=== PATIENT | female | born 1995 | race Caucasian/White ===

== ENCOUNTER → 2025-02-01 07:38 | Outpatient (REF) | payer OTHER, SELFPAY | LOC: PNTC 07:38 | PROVIDERS: ATTENDING PHYSICIAN Obstetrics & Gynecology | DX: O14.90 Unspecified pre-eclampsia, unspecified trimester (principal) | CPT/HCPCS: 59025; 76815 ==

== ENCOUNTER → 2025-02-08 07:53 | Outpatient (REF) | payer OTHER, SELFPAY | LOC: PNTC 07:53 | PROVIDERS: ATTENDING PHYSICIAN Obstetrics & Gynecology | DX: O14.90 Unspecified pre-eclampsia, unspecified trimester (principal) | CPT/HCPCS: 59025; 76815 ==

== ENCOUNTER → 2025-02-15 08:27 | Outpatient (REF) | payer OTHER, SELFPAY | LOC: PNTC 08:27 | PROVIDERS: ATTENDING PHYSICIAN Obstetrics & Gynecology | DX: O14.90 Unspecified pre-eclampsia, unspecified trimester (principal) | CPT/HCPCS: 59025; 76815 ==

== ENCOUNTER 2025-03-04 14:29 | Observation (INO) | payer OTHER, SELFPAY ==
[2025-03-04 15:02] VITALS: BP 120/82; BMI 28.2
[2025-03-04 15:11] LABS: Hematocrit 39.3 % (37.0-47.0); Hemoglobin 13.8 g/dL (12.0-16.0); Mean Corp Hgb Conc. 35.1 g/dL (33.0-37.0); Mean Corpuscular Volume 86.4 fL (81.0-99.0); Nucleated Red Blood Cells % 0 %; Platelet Count 175 10^3/uL (130-400); Red Cell Dist. Width 12.6 % (11.5-14.5)
[2025-03-04 15:32] LABS: Blood Urea Nitrogen 6 mg/dl (7-17); Calcium 9.6 mg/dl (8.4-10.2); Carbon Dioxide 21 mmol/L (22-30); Chloride 109 mmol/L (98-107); Estimated Creatinine Clearance > 125 ml/min; Glucose 87 mg/dl (70-99); Sodium 135 mmol/L (135-145); eGFR > 60.00
[2025-03-04 16:10] LABS: ALT (SGPT) 16 U/L (0-35); AST (SGOT) 23 U/L (14-36); Albumin 3.5 g/dl (3.5-5.0); Alkaline Phosphatase 108 U/L (38-126); Blood Urea Nitrogen 5 mg/dl (7-17); Calcium 9.0 mg/dl (8.4-10.2); Carbon Dioxide 21 mmol/L (22-30); Chloride 109 mmol/L (98-107); Estimated Creatinine Clearance > 125 ml/min; Glucose 74 mg/dl (70-99); Potassium 4.0 mmol/L (3.5-5.1); Sodium 135 mmol/L (135-145); Total Protein 6.0 g/dl (6.3-8.2); eGFR > 60.00
== END 2025-03-04 17:57 | disposition home or self-care (01) ==
LOC: LDRP 14:29
PROVIDERS: ADMITTING PHYSICIAN Obstetrics & Gynecology; FAMILY PHYSICIAN Family Medicine
DX: O26.893 Other specified pregnancy related conditions, third trimester (principal); R10.9 Unspecified abdominal pain; Z3A.37 37 weeks gestation of pregnancy
CPT/HCPCS: 59025; 80048; 80053; 82570; 84156; 85025; 86850; 86900; 86901; G0378

== ENCOUNTER → 2025-03-07 08:18 | Outpatient (REF) | payer OTHER, SELFPAY | LOC: PNTC 08:18 | PROVIDERS: ATTENDING PHYSICIAN Student in an Organized Health Care Education/Training Program | DX: O34.29 Maternal care due to uterine scar from other previous surgery (principal); Z87.59 Personal history of other complications of pregnancy, childbirth and the puerperium | CPT/HCPCS: 59025; 76815 ==

== ENCOUNTER → 2025-03-14 07:59 | Outpatient (REF) | payer OTHER, SELFPAY | LOC: PNTC 07:59 | PROVIDERS: ATTENDING PHYSICIAN Student in an Organized Health Care Education/Training Program | DX: O34.29 Maternal care due to uterine scar from other previous surgery (principal); Z87.59 Personal history of other complications of pregnancy, childbirth and the puerperium | CPT/HCPCS: 59025; 76815 ==

== ENCOUNTER 2025-03-21 02:32 | Inpatient (IN) | payer OTHER, SELFPAY ==
[2025-03-21 02:44] VITALS: BP 124/87; BMI 28.2
[2025-03-21] MEDS: LR 1000 IV ×3 (03:54→15:30)
[2025-03-21 04:10] LABS: Hematocrit 38.0 % (37.0-47.0); Hemoglobin 13.5 g/dL (12.0-16.0); Mean Corp Hgb Conc. 35.5 g/dL (33.0-37.0); Mean Corpuscular Volume 85.8 fL (81.0-99.0); Nucleated Red Blood Cells % 0 %; Platelet Count 160 10^3/uL (130-400); Red Cell Dist. Width 12.6 % (11.5-14.5)
[2025-03-21 04:40] LABS: ALT (SGPT) 17 U/L (0-35); AST (SGOT) 24 U/L (14-36); Albumin 3.6 g/dl (3.5-5.0); Alkaline Phosphatase 138 U/L (38-126); Blood Urea Nitrogen 5 mg/dl (7-17); Calcium 8.8 mg/dl (8.4-10.2); Carbon Dioxide 21 mmol/L (22-30); Chloride 110 mmol/L (98-107); Estimated Creatinine Clearance > 125 ml/min; Glucose 101 mg/dl (70-99); Potassium 3.9 mmol/L (3.5-5.1); Sodium 136 mmol/L (135-145); Total Protein 6.1 g/dl (6.3-8.2); eGFR > 60.00
[2025-03-21] MEDS: STADOL 1 MG IV (12:38)
[2025-03-21 12:50] LABS: Glucose - Point of Care 101 mg/dl (70-99)
[2025-03-21] MEDS: SUBLIMAZE 100 MCG EPIDURAL (13:41)
[2025-03-21] MEDS: FENTANYL/BUPIVACAINE 100 EPIDURAL (13:42)
[2025-03-21 15:17] LABS: Glucose - Point of Care 93 mg/dl (70-99)
[2025-03-21 17:08] LABS: Glucose - Point of Care 108 mg/dl (70-99)
[2025-03-21 19:02] LABS: Glucose - Point of Care 94 mg/dl (70-99)
[2025-03-21] MEDS: PITOCIN 30 UNITS/NSS 500 ML IV (20:16)
[2025-03-21] MEDS: METHERGINE INJECTION 0.2 MG IM (21:17)
[2025-03-21] MEDS: MOTRIN 600 MG PO (22:05)
[2025-03-21] MEDS: TYLENOL 650 MG PO (23:38)
[2025-03-22] MEDS: TYLENOL 650 MG PO ×5 (03:28→20:06)
[2025-03-22] MEDS: MOTRIN 600 MG PO ×3 (05:08→18:10)
[2025-03-22 06:00] LABS: Hematocrit 34.4 % (37.0-47.0); Hemoglobin 12.3 g/dL (12.0-16.0)
[2025-03-22] MEDS: COLACE 100 MG PO ×2 (07:45→20:06)
[2025-03-22] MEDS: PRENATAL PLUS 1 TABLET PO (07:45)
[2025-03-23] MEDS: TYLENOL 650 MG PO ×2 (00:05→04:35)
[2025-03-23] MEDS: MOTRIN 600 MG PO ×2 (00:05→07:27)
[2025-03-23] MEDS: PRENATAL PLUS 1 TABLET PO (07:27)
[2025-03-23] MEDS: COLACE 100 MG PO (07:27)
[2025-03-24 13:16] LABS: Syphilis/T. pallidum Ab Reflex Negative (Negative)
== END 2025-03-23 12:00 | disposition home or self-care (01) | DRG 806 ==
LOC: LDRP 02:32
PROVIDERS: Obstetrics & Gynecology; ADMITTING PHYSICIAN Obstetrics & Gynecology
PROC: 10907ZC Drainage of Amniotic Fluid, Therapeutic from Products of Conception, Via Natural or Artificial Opening (ICD-10-PCS; 2025-03-21)
PROC: 10E0XZZ Delivery of Products of Conception, External Approach (ICD-10-PCS; 2025-03-21)
PROC: 0KQM0ZZ Repair Perineum Muscle, Open Approach (ICD-10-PCS; 2025-03-21)
DX: O48.0 Post-term pregnancy (principal); E71.311 Medium chain acyl CoA dehydrogenase deficiency; Z37.0 Single live birth; Z3A.40 40 weeks gestation of pregnancy; O70.1 Second degree perineal laceration during delivery; O75.89 Other specified complications of labor and delivery; O34.219 Maternal care for unspecified type scar from previous cesarean delivery; Z88.6 Allergy status to analgesic agent
CPT/HCPCS: 80053; 82962; 85014; 85018; 85025; 86780; 86850; 86900; 86901

== ENCOUNTER 2025-03-27 09:29 | Observation (INO) | payer OTHER, SELFPAY ==
[2025-03-27 09:38] VITALS: BP 134/76; BMI 27.9
[2025-03-27 10:49] LABS: ALT (SGPT) 31 U/L (0-35); AST (SGOT) 28 U/L (14-36); Albumin 3.5 g/dl (3.5-5.0); Alkaline Phosphatase 85 U/L (38-126); Blood Urea Nitrogen 11 mg/dl (7-17); Calcium 8.5 mg/dl (8.4-10.2); Carbon Dioxide 22 mmol/L (22-30); Chloride 109 mmol/L (98-107); Estimated Creatinine Clearance > 125 ml/min; Glucose 99 mg/dl (70-99); Potassium 4.3 mmol/L (3.5-5.1); Sodium 137 mmol/L (135-145); Total Protein 6.1 g/dl (6.3-8.2); eGFR > 60.00
[2025-03-27 10:59] LABS: Hematocrit 34.9 % (37.0-47.0); Hemoglobin 11.8 g/dL (12.0-16.0); Mean Corp Hgb Conc. 33.8 g/dL (33.0-37.0); Mean Corpuscular Volume 90.9 fL (81.0-99.0); Platelet Count 183 10^3/uL (130-400); Red Cell Dist. Width 12.7 % (11.5-14.5)
[2025-03-27] MEDS: TYLENOL 1000 MG PO (11:13)
[2025-03-27] MEDS: MOTRIN 600 MG PO (11:14)
[2025-03-27] MEDS: TRANDATE 200 MG PO (12:04)
== END 2025-03-27 14:23 | disposition home or self-care (01) ==
LOC: LDRP 09:29
PROVIDERS: ADMITTING PHYSICIAN Student in an Organized Health Care Education/Training Program
DX: O14.05 Mild to moderate pre-eclampsia, complicating the puerperium (principal); Z88.6 Allergy status to analgesic agent; E71.311 Medium chain acyl CoA dehydrogenase deficiency
CPT/HCPCS: 80053; 82570; 84156; 85027